=== PATIENT | female | born 2000 | race Two or more races ===

== ENCOUNTER 2020-02-19 20:42 | Emergency (ER) | payer MEDICAID, OTHER ==
[~2020-02-19] VITALS: Ht 167.6 cm; Wt 72.6 kg
[2020-02-19 21:12] VITALS: BP 109/62
[2020-02-19] MEDS ORDERED: IBUPROFEN 800 MG TAB PO ONE (23:15)
== END 2020-02-19 23:23 | disposition home or self-care (01) ==
LOC: ER 20:42
DX: S39.012A Strain of muscle, fascia and tendon of lower back, initial encounter (principal); M25.551 Pain in right hip; V43.52XA Car driver injured in collision with other type car in traffic accident, initial encounter; Y93.89 Activity, other specified; Y92.488 Other paved roadways as the place of occurrence of the external cause; Y99.8 Other external cause status
CPT/HCPCS: 72100; 73502; 81025